=== PATIENT | male | born 1945 | race Caucasian/White ===

== ENCOUNTER → 2019-02-25 | Outpatient (CLI) | payer MEDICARE ==
--- NOTE | 2019-02-25 10:53 | FL ---
EXAMINATION TYPE: FL barium swallow DATE OF EXAM: 02/25/2019 CLINICAL HISTORY: Dysphagia. History of esophageal perforation 1996. Feeling of tightness when swallo wing. TECHNIQUE: A double contrast esophagram is performed utilizing air and barium. A total of 60 second s of fluoroscopic time was utilized during procedure. 26 fluoroscopic images were saved during the ex amination. COMPARISON: None FINDINGS: There is proximal dilatation of the esophagus with irregular margins throughout. There is p ersistent focal narrowing at the gastroesophageal junction with a high-grade stricture noted. This is nonobstructive as contrast does extend through the stricture into the gastric fundus and proximal kandi dy however there is delayed expelling of contrast, particularly on the lateral images. Birds beaking is demonstrated on the last frontal images 25 and 26. IMPRESSION: High-grade stricture at the gastroesophageal junction resulting in proximal dilatation of the esophagus and diffusely abnormal esophageal mucosa, possibly on the basis of chronic esophagitis .
== END | disposition home or self-care (01) ==
LOC: RADUSWWP 09:50
PROVIDERS: ATTEND Thoracic Surgery (Cardiothoracic Vascular Surgery)
DX: K22.8 Other specified diseases of esophagus (principal); R13.10 Dysphagia, unspecified
CPT/HCPCS: 74220

== ENCOUNTER 2019-04-05 09:57 | Day surgery (SDC) | payer MEDICARE ==
[2019-04-03 14:31] VITALS: BMI 25.3
[~2019-04-05 09:57] MED LIST: LACTATED RINGERS 1,000 ML IV SCH; LIDOCAINE 1% 20 ML VIAL (10MG/ML) FOR IV START INTRADERMA PRN
[2019-04-05 10:14] VITALS: TEMP 97.9
[2019-04-05] MEDS ORDERED: LACTATED RINGERS 1,000 ML IV ONE (10:17)
[2019-04-05] MEDS ORDERED: LIDOCAINE 1% 20 ML VIAL (10MG/ML) FOR IV START SQ ONE (10:17)
[2019-04-05] MEDS ORDERED: LIDOCAINE 1% INJ 10MG/ML (20 ML MDV) ONE (10:48)
[2019-04-05] MEDS ORDERED: PROPOFOL 10 MG/ML 20 ML VIAL IV ONE (10:48)
[2019-04-05 11:20] VITALS: BP 136/83; PULSE 65; RESP 16
--- NOTE | 2019-04-05 11:21 | P.PCN ---
Date of Procedure: 04/05/19 Procedure(s) Performed: BRIEF HISTORY: Patient is a 74-year-old, pleasant, male scheduled for an upper endoscopy as a part of evaluation of dysphagia to solids for the last few months duration. He was diagnosed with esophageal achalasia in 1996 for which she underwent a balloon dilation that was complicated by perforation and hence underwent emergency as well as myotomy by Dr. Velez and he did extremely well on these years. The last few months has been having intermittent dysphagia to solids and occasionally with liquids.. PROCEDURE PERFORMED: Esophagogastroduodenoscopy with biopsy. PREOPERATIVE DIAGNOSIS: Intermittent dysphagia to solids and liquids for the last 2 years duration. IV sedation per anesthesia. PROCEDURE: After informed consent was obtained, the patient was brought into the endoscopy unit. IV sedation was administered by Anesthesia under continuous monitoring. Initially the Olympus GIF-140 video endoscope was inserted into the mouth. Esophagus intubated without any difficulty. The esophagus appeared dilated with large amount of retained liquid and approximately 150 mL of liquid food was aspirated. It was gradually advanced into the stomach and duodenum and carefully examined. The bulb and the second part of the duodenum appeared normal. The scope at this time was withdrawn to the stomach, adequately insufflated with air, and upon careful examination, mucosa of the antrum, body, cardia and the fundus appeared normal. The scope was then withdrawn into the e sophagus. The GE junction was located at 41 cm from the incisors. The GE junction was widely patent. The entire length of esophagus was very dilated and there was evidence of esophagitis in the distal esophagus multiple erosions and cobblestoning of the mucosa probably related to food stasis. Multiple biopsies were done from this area. The mucosa of the proximal esophagus appeared normal. Patient tolerated the procedure well. IMPRESSION: 1. Severely dilated fluid-filled esophagus with no evidence of esophageal stricture. 2. Thickened mucosal folds with multiple erosions and cobblestoning of the mucosa noted in the distal esophagus consistent with the esophagitis probably related to food stasis 3. Patent lower esophageal sphincter with no evidence of esophageal stricture RECOMMENDATIONS: The findings of this examination were discussed with the patient is well as his family. He'll be started on Prilosec 20 mg twice daily and he'll be seen in office in 4 weeks from now..
== END 2019-04-05 11:40 | disposition home or self-care (01) ==
LOC: ORWHC2ENDO 09:57
PROVIDERS: ATTEND Internal Medicine Gastroenterology
DX: K22.10 Ulcer of esophagus without bleeding (principal); K22.8 Other specified diseases of esophagus; I25.10 Atherosclerotic heart disease of native coronary artery without angina pectoris; I10 Essential (primary) hypertension; E78.5 Hyperlipidemia, unspecified; Z79.82 Long term (current) use of aspirin; Z95.1 Presence of aortocoronary bypass graft; Z79.899 Other long term (current) drug therapy; Z98.890 Other specified postprocedural states
CPT/HCPCS: 88305; 43239; J2001; J2704

== ENCOUNTER 2022-08-12 10:51 | Day surgery (SDC) | payer MEDICARE ==
[2022-08-10 14:39] VITALS: BMI 26.5
[~2022-08-12 10:51] MED LIST changes: -LIDOCAINE 1% 20 ML VIAL (10MG/ML) FOR IV START INTRADERMA PRN
[2022-08-12 11:45] VITALS: TEMP 97.4
[2022-08-12] MEDS ORDERED: LIDOCAINE 2% INJ 20 MG/ML (2 ML VIAL) ONE (12:41)
[2022-08-12] MEDS ORDERED: PROPOFOL 10 MG/ML 20 ML VIAL IV ONE (12:41)
--- NOTE | 2022-08-12 12:52 | P.PCN ---
Date of Procedure: 08/12/22 Procedure(s) Performed: BRIEF HISTORY: Patient is a 77-year-old, pleasant, white male scheduled for an upper endoscopy as a part of evaluation of intermittent dysphagia to solids. He was diagnosed with esophageal achalasia in 1996 and is status post balloon dilation that was complicated by perforation following which he underwent Heller's myotomy and since then has been doing well. Has occasional dysphagia to solids and liquids.. PROCEDURE PERFORMED: Esophagogastroduodenoscopy with biopsy. PREOPERATIVE DIAGNOSIS: Dysphagia/history of esophageal achalasia. IV sedation per anesthesia. PROCEDURE: After informed consent was obtained, the patient was brought into the endoscopy unit. IV sedation was administered by Anesthesia under continuous monitoring. Initially the Olympus GIF-140 video endoscope was inserted into the mouth. Esophagus intubated without any difficulty. It was gradually advanced into the stomach and duodenum and carefully examined. The bulb and the second part of the duodenum appeared normal. The scope at this time was withdrawn to the stomach, adequately insufflated with air, and upon careful examination, mucosa of the antrum, body, cardia and the fundus appeared normal. Multiple small gastric polyps noted. The scope was then withdrawn into the esophagus. The GE junction was located at 40 cm from the incisors. The esophagus appeared dilated with some retained fluid noted but there was no evidence of esophagitis or esophageal stricture. Biopsies were done from the distal esophagus. There were no erosions or ulcerations seen and the patient tolerated the procedure well. IMPRESSION: 1. Widely patent lower esophageal sphincter. 2. Dilated esophagus with retained liquids 3. Multiple small gastric polyps. RECOMMENDATIONS: The findings of this examination were discussed with the patient as well as his family. He was advised to follow with the biopsy results. Recommend repeat surveillance upper endoscopy every 2-3 years..
[2022-08-12 12:58] VITALS: RESP 16
[2022-08-12 13:17] VITALS: BP 156/80; PULSE 65
== END 2022-08-12 13:35 | disposition home or self-care (01) ==
LOC: ORWHC2ENDO 10:51
PROVIDERS: ATTEND Internal Medicine Gastroenterology
DX: K31.7 Polyp of stomach and duodenum (principal); K22.89 Other specified disease of esophagus; K22.0 Achalasia of cardia; I10 Essential (primary) hypertension; E78.5 Hyperlipidemia, unspecified; M19.90 Unspecified osteoarthritis, unspecified site; Z79.82 Long term (current) use of aspirin; Z79.899 Other long term (current) drug therapy; Z98.890 Other specified postprocedural states
CPT/HCPCS: 88305; 43239; J2704; J2001